=== PATIENT | male | born 1960 | race Caucasian/White ===

== ENCOUNTER 2020-09-27 10:19 | Emergency (ER) | payer BC, SELFPAY ==
[2020-09-27 10:29] VITALS: BP 146/91; PULSE 81; RESP 18; TEMP 36.9; O2SAT 100; BMI 25.9
--- NOTE | 2020-09-27 10:52 | HMH.EDUTC ---
[facility] [place] Disposition Clinical Impression: Hives Disposition: Home, Self-Care Condition on Discharge: Good Instructions: DI for Hives Additional Instructions: Follow up with Dr Mcarthur if recurs/does not resolve Prescriptions: methylPREDNISolone [Medrol 4mg tab] 4 mg PO DIRECTED #21 tab Transmission Status: Pending to [facility] Cetirizine HCl [Zyrtec 10mg Tab*] 10 mg PO DAILY 10 Days #10 tab Transmission Status: Pending to [facility] Referrals: Susan Mcarthur MD [Primary Care Provider] - Time of Disposition: 11:05 Medical Decision Making - Pete Inquiry Pt receiving controlled substance: No Vital Signs: 09/27/20 10:29 Temperature 98.4 F Temperature Source Oral Pulse Rate [Radial] 81 Respiratory Rate 18 Blood Pressure [Right Arm] 146/91 H Blood Pressure Mean [Right Arm] 109 Blood Pressure Source [Right Arm] Automatic Cuff Blood Pressure Position [Right Arm] Sitting 02 Sat by Pulse Oximetry 100 Oxygen Delivery Method Room Air [facility] [place] HPI - General Stated complaint: Rash on stomach Time Seen by Provider: 09/27/20 10:52 Mode of Arrival: Ambulatory Source of Information: Patient Limitations: No Limitations Description of Symptoms (Recalled from Triage Doc. by RN): rash all over x 3 days HEENT Symptoms (Recalled from RN notes): No Resp Symptoms (Recalled from RN notes): No Skin Symptoms (Recalled from RN notes): Yes MS Symptoms (Recalled from RN notes): No Functional Status (Recalled from RN notes): wnl - History of Present Illness Provider Complaint: Fluctuating rash all over body X several days. No known new exposures. Rash comes and goes. At times, rash is red and raised. Resolves, and then recurs in a new spot. It is itchy. No other symptoms. Denies ear pain, sore throat, fever, cough, loss of taste or smell, vomiting or diarrhea. Onset (ago): day(s) (3) Consistency: intermittent Relieving factors: none Exacerbating factors: none Associated symptoms: rash Treatments prior to arrival: none - Related Data Previous Rx's Medication Instructions Recorded Cetirizine HCl [Zyrtec 10mg Tab*] 10 mg PO DAILY 10 Days #10 tab 09/27/20 methylPREDNISolone [Medrol 4mg 4 mg PO DIRECTED #21 tab 09/27/20 tab] Allergies Allergy/AdvReac Type Severity Reaction Status Date / Time No Known Allergies Allergy Unverified 10/17/17 14:36 - Worker's Comp Is this a Worker's Comp case?: No [facility] History - Hepatitis A Screen Drug use history?: No High risk sexual behaviors?: No History of sexually transmitted infection?: No Currently employed?: No Childcare worker?: No Do you have indoor plumbing?: Yes Do you have electricity?: Yes Attestation statement:: This patient has been screened for Hepatitis A risk factors. I have reviewed the patient's past medical history: Yes - Social History Alcohol Intake: never Occupational Status: other ROS Obtained: Yes All systems reviewed & no additional complaints - Integumentary/Breasts Skin/Breast: Reports rash Physical Exam - General General appearance: alert, in no apparent distress - Head Head exam: atraumatic, normocephalic - Eye Eye exam: Present: PERRL - ENT ENT exam: Present: normal oropharynx - Respiratory Respiratory exam: Present: normal lung sounds bilaterally - Cardiovascular Cardiovascular exam: Present: regular rate, normal rhythm - Neurological Exam Neurological exam: Present: alert, oriented X3 - Skin Skin exam: Present: warm, dry, intact, rash (scattered wheals)
[2020-09-27 11:15] VITALS: BP 146/91; PULSE 81; RESP 18; TEMP 36.9; O2SAT 100
== END 2020-09-27 11:15 | disposition home or self-care (01) ==
PROVIDERS: Emergency Provider Physician Assistant; PCP Family Medicine
DX: L50.9 Urticaria, unspecified (principal)
CPT/HCPCS: 99201

== ENCOUNTER → 2020-12-23 14:24 | Outpatient (CLI) | payer BC, SELFPAY | PROVIDERS: PCP Family Medicine; Visit Provider Family Medicine | DX: Z20.822 Contact with and (suspected) exposure to COVID-19 (principal); U07.1 COVID-19; R09.89 Other specified symptoms and signs involving the circulatory and respiratory systems | CPT/HCPCS: U0003 ==

== ENCOUNTER 2020-12-24 14:00 | Outpatient (CLI) | payer BC, SELFPAY ==
[2020-12-24] VITALS (8 sets, daily range): BP systolic 171–186; BP diastolic 103–110; PULSE 69–77; RESP 16–22; TEMP 36.6; O2SAT 93–98
== END 2020-12-24 18:11 | disposition home or self-care (01) ==
LOC: INF 14:03
PROVIDERS: PCP Family Medicine; Visit Provider Family Medicine
DX: U07.1 COVID-19 (principal)
CPT/HCPCS: 96365

== ENCOUNTER 2021-10-01 09:50 | Emergency (ER) | payer BC, SELFPAY ==
[2021-10-01 11:42] VITALS: BP 139/90; PULSE 86; RESP 20; TEMP 37.2; O2SAT 97; BMI 25.1
[2021-10-01 11:53] LABS: UTC Strep Screen (Rapid) Positive (Negative)
[2021-10-01 12:29] VITALS: BP 139/90; PULSE 86; RESP 20; TEMP 37.2
--- NOTE | 2021-10-01 12:55 | HMH.EDUTC ---
[facility] [place] Disposition Clinical Impression: Strep throat Disposition: Home, Self-Care Condition on Discharge: Good Instructions: Strep Throat, DI for Strep Throat Additional Instructions: Drink plenty of fluids. Take tylenol or ibuprofen for pain or fever. Take the medications as directed. Follow up with your regular doctor. GO TO THE ER FOR ANY WORSENING SYMPTOMS Throw your tooth brush away and get a new one. The cough syrup (promethazine dm) will make you drowsy, so don't drive or operate heavy machinery after taking it. The tessalon perles (benzonatate) should not make you drowsy. Prescriptions: Promethazine/Dextromethorphan [Promethazine-Dm Syrup] 5 ml PO Q6HP PRN #240 ml PRN Reason: Cough [facility] Amoxicillin/Potassium Clav [Augmentin 875-125 Tablet] 1 tab PO Q12H 10 Days #20 tab Transmission Status: Received by [facility] Benzonatate [Benzonatate 100mg cap] 100 mg PO TIDP PRN #30 cap PRN Reason: Cough Transmission Status: [facility] predniSONE [Deltasone 10mg tablet] 10 mg PO BID 5 Days #10 tab Transmission Status: [facility] Referrals: Micah Ramsey MD [Primary Care Provider] - Time of Disposition: 13:00 Medical Decision Making - Medical Records Medical records reviewed: No: I reviewed the patient's medical records. - Pete Inquiry Pt receiving controlled substance: No Vital Signs: 10/01/21 11:42 10/01/21 12:29 Temperature 99 F 99 F Temperature Source Oral Pulse Rate 86 Pulse Rate [Left] 86 Respiratory Rate 20 20 Blood Pressure 139/90 Blood Pressure [Right Arm] 139/90 Blood Pressure Mean [Right Arm] 106 02 Sat by Pulse Oximetry 97 - Lab Data Lab results reviewed: Yes: I reviewed the patient's lab results. Lab Results 10/01/21 11:52: Strep Scn Rapid Clinic Positive A [facility] [place] HPI - General Stated complaint: sore throat, cough Time Seen by Provider: 10/01/21 12:55 Mode of Arrival: Ambulatory Source of Information: Patient Limitations: No Limitations Description of Symptoms (Recalled from Triage Doc. by RN): pt c/o a cough and sore throat x2 days. HEENT Symptoms (Recalled from RN notes): Yes (sore throat) Resp Symptoms (Recalled from RN notes): No (cough) Skin Symptoms (Recalled from RN notes): No MS Symptoms (Recalled from RN notes): No Functional Status (Recalled from RN notes): wnl - History of Present Illness Provider Complaint: He states that he has had a sore throat for the past 3 days. For the past 2 days, he has had a pretty bad cough . He is coughing up greenish sputum. He has not had a documented fever, but he has had some chilling. - Related Data Previous Rx's Medication Instructions Recorded Cetirizine HCl [Zyrtec 10mg Tab*] 10 mg PO DAILY 10 Days #10 tab 09/27/20 methylPREDNISolone [Medrol 4mg 4 mg PO DIRECTED #21 tab 09/27/20 tab] Amoxicillin/Potassium Clav 1 tab PO Q12H 10 Days #20 tab 10/01/21 [Augmentin 875-125 Tablet] Benzonatate [Benzonatate 100mg 100 mg PO TIDP PRN #30 cap 10/01/21 cap] Promethazine/Dextromethorphan 5 ml PO Q6HP PRN #240 ml 10/01/21 [Promethazine-Dm Syrup] predniSONE [Deltasone 10mg tablet] 10 mg PO BID 5 Days #10 tab 10/01/21 Allergies Allergy/AdvReac Type Severity Reaction Status Date / Time No Known Allergies Allergy Unverified 10/17/17 14:36 - Worker's Comp Is this a Worker's Comp case?: No [facility] History - Hepatitis A Screen Drug use history?: No High risk sexual behaviors?: No History of sexually transmitted infection?: No Currently employed?: No Childcare worker?: No Do you have indoor plumbing?: Yes Do you have electricity?: Yes Attestation statement:: This patient has been screened for Hepatitis A risk factors. I have reviewed the patient's past medical history: Yes - Social History Alcohol Intake: never Occupational Status: other ROS Obtained: Yes
== END 2021-10-01 13:07 | disposition home or self-care (01) ==
PROVIDERS: Emergency Provider Nurse Practitioner Family; PCP Family Medicine
DX: J02.0 Streptococcal pharyngitis (principal)
CPT/HCPCS: 87880; 99202; G0463

== ENCOUNTER 2022-01-08 13:00 | Emergency (ER) | payer BC, SELFPAY ==
[2022-01-08 13:01] VITALS: BP 149/90; PULSE 98; RESP 16; TEMP 36.7; O2SAT 97; BMI 25.8
--- NOTE | 2022-01-08 13:24 | HMH.EDUTC ---
[facility] [place] Disposition Clinical Impression: Sinusitis Qualifiers: Sinusitis location: unspecified location Chronicity: unspecified Qualified Code(s): J32.9 - Chronic sinusitis, unspecified Disposition: Home, Self-Care Condition on Discharge: Good Instructions: Sinusitis, DI for Sinusitis Additional Instructions: *Monitor Temp, Over the counter Motrin or Tylenol as directed/as needed Tylenol every 4 hours and Motrin every 6 hours (as long as your family doctor has told you that you can take it) for fever or pain. and straight to ER if unable to lower temp less than 101.0 after medication given *Warm salt water gargles may help to soothe the throat *Throat Lozenges *Warm fluids like tea with honey may help to soothe the throat *Sleep elevated *Humidifier/Vaporizer Take medication as prescribed Return if needed Follow up IMMEDIATELY for new or worsening symptoms or no Noticeable improvement over the next 48-72 hours. 911 for difficulty breathing or swallowing Prescriptions: Amoxicillin/Potassium Clav [Amox-Clav 875-125 mg Tablet] 1 tab PO BID #20 tab [email or web address] predniSONE [Deltasone 10mg tablet] 10 mg PO BID 5 Days #10 tab Transmission Status: [email or web address] Promethazine/Dextromethorphan [Promethazine-Dm Syrup] 2.5 - 5 ml PO Q6H PRN #200 ml PRN Reason: Cough Transmission Status: [facility] Referrals: Mciah Ramsey MD [Primary Care Provider] - As needed Time of Disposition: 13:31 Medical Decision Making - Pete Inquiry Pt receiving controlled substance: No Pete was queried for this patient: No Vital Signs: 01/08/22 13:01 Temperature 98.1 F Temperature Source Oral Pulse Rate [Right] 98 H Respiratory Rate 16 Blood Pressure [Right Arm] 149/90 H Blood Pressure Mean [Right Arm] 109 Blood Pressure Source [Right Arm] Automatic Cuff Blood Pressure Position [Right Arm] Sitting 02 Sat by Pulse Oximetry 97 Oxygen Delivery Method Room Air [facility] [place] HPI - General Stated complaint: cough, sinus congestion Time Seen by Provider: 01/08/22 13:25 Mode of Arrival: Ambulatory Source of Information: Patient Limitations: No Limitations Description of Symptoms (Recalled from Triage Doc. by RN): sinus pressure, dry cough, body aches that started 2 days ago HEENT Symptoms (Recalled from RN notes): Yes (sinus pressure, dry cough, body ahces) Resp Symptoms (Recalled from RN notes): No Skin Symptoms (Recalled from RN notes): No MS Symptoms (Recalled from RN notes): No Functional Status (Recalled from RN notes): na - History of Present Illness Provider Complaint: Patient states that he has been having problems with his sinuses and has been taking OTC medications States that for the last couple of days it has got worse States that he has been having pressure behind his eyes, dry hacking cough and drainage in the back of his throat States that he thinks he may have a sinus infection - Related Data Previous Rx's Medication Instructions Recorded Cetirizine HCl [Zyrtec 10mg Tab*] 10 mg PO DAILY 10 Days #10 tab 09/27/20 methylPREDNISolone [Medrol 4mg 4 mg PO DIRECTED #21 tab 09/27/20 tab] Amoxicillin/Potassium Clav 1 tab PO Q12H 10 Days #20 tab 10/01/21 [Augmentin 875-125 Tablet] Benzonatate [Benzonatate 100mg 100 mg PO TIDP PRN #30 cap 10/01/21 cap] Promethazine/Dextromethorphan 5 ml PO Q6HP PRN #240 ml 10/01/21 [Promethazine-Dm Syrup] predniSONE [Deltasone 10mg tablet] 10 mg PO BID 5 Days #10 tab 10/01/21 Amoxicillin/Potassium Clav 1 tab PO BID #20 tab 01/08/22 [Amox-Clav 875-125 mg Tablet] Promethazine/Dextromethorphan 2.5 - 5 ml PO Q6H PRN #200 ml 01/08/22 [Promethazine-Dm Syrup] predniSONE [Deltasone 10mg tablet] 10 mg PO BID 5 Days #10 tab 01/08/22 Allergies Allergy/AdvReac Type Severity Reaction Status Date / Time No Known Allergies Allergy Verified 01/08/22 13:24 - Worker's Comp Is this a Wor
[2022-01-08 13:33] VITALS: BP 149/90; PULSE 98; RESP 16; TEMP 36.7; O2SAT 97
== END 2022-01-08 13:35 | disposition home or self-care (01) ==
PROVIDERS: Emergency Provider Nurse Practitioner; PCP Family Medicine
DX: J32.9 Chronic sinusitis, unspecified (principal); Z79.52 Long term (current) use of systemic steroids; Z79.899 Other long term (current) drug therapy
CPT/HCPCS: 99213; G0463

== ENCOUNTER 2022-12-05 23:10 | Emergency (ER) | payer BC, SELFPAY ==
[2022-12-05 23:21] VITALS: BP 146/77; PULSE 59; RESP 17; TEMP 36.6; O2SAT 97; BMI 25.1
--- NOTE | 2022-12-05 23:37 | CT_ITS ---
PROCEDURE INFORMATION: Exam: CT Abdomen And Pelvis Without Contrast Exam date and time: 12/05/2022 11:54 PM Age: 62 years old Clinical indication: Abdominal pain; Localized; Right lower quadrant (rlq); Patient HX: Patient states rlq pain that started tonight. ; Additional info: Flank pain TECHNIQUE: Imaging protocol: Computed tomography of the abdomen and pelvis without contrast. Radiation optimization: All CT scans at this facility use at least one of these dose optimization techniques: automated exposure control; mA and/or kV adjustment per patient size (includes targeted exams where dose is matched to clinical indication); or iterative reconstruction. Other protocol: This patient has received 0 known CTs and 0 known cardiac nuclear medicine studies in the 12 months prior to the current study. COMPARISON: No relevant prior studies available. FINDINGS: Lungs: There is bibasilar atelectasis. Liver: Normal. No mass. Gallbladder and bile ducts: The gallbladder is contracted. There is no biliary ductal dilation. Pancreas: Normal. No ductal dilation. Spleen: Normal. No splenomegaly. Adrenal glands: Normal. No mass. Kidneys and ureters: There is a 3 x 4 mm right UPJ calculus causing mild hydronephrosis. The left kidney and ureter normal. Stomach and bowel: Unremarkable. No obstruction. No mucosal thickening. Appendix: The appendix is absent. Intraperitoneal space: Unremarkable. No free air. No significant fluid collection. Vasculature: Unremarkable. No abdominal aortic aneurysm. Lymph nodes: Unremarkable. No enlarged lymph nodes. Urinary bladder: Unremarkable as visualized. Reproductive: The prostate gland is enlarged. Bones/joints: Unremarkable. No acute fracture. Soft tissues: Unremarkable. IMPRESSION: 1. 3 x 4 mm right UPJ calculus causing mild hydronephrosis. 2. Other findings as detailed.
--- NOTE | 2022-12-05 23:50 | PC.NURSE ---
Pt gone to RAD via wheelchair
[2022-12-05 23:55] LABS: Basophils # 0.2 K/mm3 (0-0.2); Basophils % 1.6 % (0.1-2.0); Eosinophils # 0.3 K/mm3 (0.0-0.4); Eosinophils % 2.4 % (0.1-12.0); Hematocrit 51.2 % (42.0-52.0); Hemoglobin 16.8 g/dL (14.1-18.0); Lymphocytes # 5.2 K/mm3 (0.7-4.5); Lymphocytes % 44.1 % (10-50); Mean Corpuscular HGB Conc 32.8 g/dL (31.8-35.4); Mean Corpuscular Hemoglobin 31.2 pg (27.0-31.2); Mean Corpuscular Volume 95.2 fl (80-94); Mean Platelet Volume 7.6 fl (7.4-10.4); Monocytes # 0.8 K/mm3 (0.1-1.0); Monocytes % 6.8 % (1.7-9.3); Neutrophils # 5.4 K/mm3 (1.8-7.8); Neutrophils % 45.2 % (37.0-80.0); Platelet Count 299 K/mm3 (142-424); Red Blood Count 5.37 M/mm3 (4.60-6.20); White Blood Count 11.9 K/mm3 (4.8-10.8)
--- NOTE | 2022-12-05 23:56 | HMH.EDABDPAI ---
Discharge Plan Disposition Patient Disposition: Home, Self-Care Prescriptions Prescriptions: New ondansetron HCl 4 mg Tablet 4 mg PO Q8H PRN (Reason: Nausea) Qty: 20 0RF No Action cetirizine 10 MG tablet 10 mg PO DAILY 10 Days Qty: 10 0RF methylprednisolone 4 MG tablet 4 mg PO DIRECTED Qty: 21 0RF Rx Instructions: Take as directed on package instructions promethazine-DM 120 ML syrup 5 ml PO Q6HP PRN (Reason: Cough) Qty: 240 0RF prednisone 10 MG tablet 10 mg PO BID 5 Days Qty: 10 0RF benzonatate 100 MG capsule 100 mg PO TIDP PRN (Reason: Cough) Qty: 30 0RF amoxicillin-pot clavulanate 1 EACH tablet 1 tab PO Q12H 10 Days Qty: 20 0RF promethazine-DM 120 ML syrup 2.5 - 5 ml PO Q6H PRN (Reason: Cough) Qty: 200 0RF prednisone 10 MG tablet 10 mg PO BID 5 Days Qty: 10 0RF amoxicillin-pot clavulanate 1 EACH tablet 1 tab PO BID Qty: 20 0RF Referrals Follow up/Referrals: Susan Mcarthur MD [Primary Care Provider] - See instructions Clinical Impressions Clinical Impression: Renal colic on right side Instructions Patient Instructions: DI for Kidney Stones Discharge ED Provider: Eliceo MARINELLI)[place] Abdominal Pain HPI General Chief Complaint: Abdominal Pain Stated Complaint: Right side pain Time Seen by Provider: 12/05/22 23:56 Mode of Arrival: Ambulatory Source of Information: Patient, Spouse and Medical Record Limitations: No Limitations Description of Symptoms (Recalled from ER Triage Doc. by RN): pt to ED with nausea, vomiting and right flank pain x 1 hour. pt describes his pain as a stabbing sensation and rates it a 7 at this time History of Present Illness HPI narrative: acute rt flank pain with vomiting tonight w/o fever/rash or trauma complaint: flank pain Onset (ago): hour(s) Consistency: intermittent Location: R flank Severity: moderate Associated symptoms: nausea and vomiting Related Data Previous Rx's Medication Instructions Recorded cetirizine 10 mg tablet 10 mg PO DAILY 10 days #10 tabs 09/27/20 methylprednisolone 4 mg tablet 4 mg PO DIRECTED #21 tabs 09/27/20 amoxicillin 875 mg-potassium 1 tab PO Q12H 10 days #20 tabs 10/01/21 clavulanate 125 mg tablet benzonatate 100 mg capsule 100 mg PO TIDP PRN Cough #30 caps 10/01/21 prednisone 10 mg tablet 10 mg PO BID 5 days #10 tabs 10/01/21 promethazine-DM 6.25 mg-15 mg/5 mL 5 ml PO Q6HP PRN Cough #240 mL 10/01/21 oral syrup amoxicillin 875 mg-potassium 1 tab PO BID #20 tabs 01/08/22 clavulanate 125 mg tablet prednisone 10 mg tablet 10 mg PO BID 5 days #10 tabs 01/08/22 promethazine-DM 6.25 mg-15 mg/5 mL 2.5 - 5 ml PO Q6H PRN Cough #200 mL 01/08/22 oral syrup ondansetron HCl 4 mg tablet 4 mg PO Q8H PRN Nausea #20 tabs 12/06/22 Allergies Allergy/AdvReac Type Severity Reaction Status Date / Time No Known Allergies Allergy Verified 01/08/22 13:24 [facility] Disclaimer: The information contained in this section may have been updated after the patient was seen, as this information can be updated by other users. Social History Smoking Status: Never smoker alcohol intake: never current occupational status: other Travel in the last 8 weeks: None ROS Obtained: Yes All systems reviewed & no additional complaints except as documented Physical Exam General General appearance: alert Head Head exam: normocephalic Eye Eye exam: Present PERRL and EOMI; Absent scleral icterus ENT ENT exam: Present mucous membranes moist Neck Neck exam: Present trachea midline Respiratory Respiratory exam: Absent respiratory distress Cardiovascular Cardiovascular exam: Present regular rate Abdominal Exam Abdominal exam: Present soft; Absent tenderness Extremities Exam Extremities exam: Present full ROM Neurological Exam Neurological exam: Present alert, oriented X3 and CN II-XII intact; Absent motor sensory deficit Psychiatric Psychiatric exam: Present normal affect Skin Sk
[2022-12-06] LABS: Alanine Aminotransferase 28 U/L (12-78); Albumin Level 4.3 g/dl (3.5-5.0); Albumin/Globulin Ratio 1.6 (1.1-1.8); Alkaline Phosphatase 63 U/L (38-126); Anion Gap 7.5 mEq/L (5-15); Aspartate Amino Transferase 30 U/L (17-59); Bilirubin,Total 0.5 mg/dl (0.2-1.3); Blood Urea Nitrogen 20 mg/dl (9-20); Calcium 8.2 mg/dl (8.4-10.2); Carbon Dioxide 30 mmol/L (22.0-30.0); Chloride 106 mmol/L (98-107); Creatinine Clearance Estimated 70 mL/min (50-200); Estimated Glomerular Filt Rate 61 ml/min (>60); GFR (African American) 74 ML/MIN (>60); Globulin 2.7 g/dL (1.3-3.2); Glucose 112 mg/dl (74-100); Potassium 3.5 mmoL/L (3.5-5.1); Sodium 140 mmol/L (136-145)
--- NOTE | 2022-12-06 | PC.NURSE ---
Pt back from RAD
[2022-12-06 00:05] LABS: C-Reactive Protein 1.5 mg/L (0-4)
[2022-12-06 00:19] LABS: Procalcitonin 0.068 ng/mL (0.0-2.0)
[2022-12-06 00:25] LABS: Erythrocyte Sedimentation Rate 1 mm/hr (0-20)
--- NOTE | 2022-12-06 00:36 | PC.NURSE ---
called radiology to prepare a disc for pt
[2022-12-06 00:42] VITALS: BP 132/68; PULSE 75; RESP 18; TEMP 36.8; O2SAT 97
== END 2022-12-06 00:59 | disposition home or self-care (01) ==
PROVIDERS: Emergency Provider Emergency Medicine; PCP Family Medicine
DX: N23 Unspecified renal colic (principal)
CPT/HCPCS: 74176; 80053; 84145; 85025; 85651; 86140; 96361; 96374; 96375; 99285; J0131; J2405

== ENCOUNTER 2023-10-07 12:36 | Emergency (ER) | payer MEDICARE, BC, SELFPAY ==
[2023-10-07 12:45] VITALS: BP 140/85; PULSE 88; RESP 19; TEMP 36.9; O2SAT 98; BMI 30.9
[2023-10-07 13:00] LABS: UTC Influenza A Antigen Positive (Negative); UTC Influenza B Antigen Negative (Negative)
--- NOTE | 2023-10-07 13:15 | EXP.UTC ---
Discharge Plan Disposition Patient Disposition: Home, Self-Care Condition: Good Prescriptions Prescriptions: New benzonatate 200 mg capsule 200 mg PO TID Qty: 30 0RF Referrals Follow up/Referrals: Susan Mcarthur MD [Primary Care Provider] - See instructions Clinical Impressions Clinical Impression: Influenza A Instructions Patient Instructions: DI for Influenza -- Adult Discharge ED Provider: Sindhu Zepeda [facility] [place] General Stated complaint: h/a, body aches Mode of Arrival: Ambulatory Source of Information: Patient Limitations: No Limitations Time Seen by Provider: 10/07/23 13:14 Description of Symptoms (Recalled from Triage Doc. by RN): PATIENT C/O PRODUCTIVE COUGH, HEADACHE AND BODY ACHES X 3 DAYS HEENT Symptoms (Recalled from RN notes): Yes Resp Symptoms (Recalled from RN notes): Yes Skin Symptoms (Recalled from RN notes): No MS Symptoms (Recalled from RN notes): No Functional Status (Recalled from RN notes): WNL Related Data Previous Rx's Medication Instructions Recorded benzonatate 200 mg capsule 200 mg PO TID #30 caps 10/07/23 Allergies Allergy/AdvReac Type Severity Reaction Status Date / Time No Known Allergies Allergy Verified 01/08/22 13:24 Worker's Comp Is this a Worker's Comp case?: No [facility] Disclaimer: The information contained in this section may have been updated after the patient was seen, as this information can be updated by other users. Medical History (Updated 10/07/23 @ 13:26 by Sindhu Zepeda APRN) No significant past medical history Social History Smoking Status: Never smoker alcohol intake: never current occupational status: other Travel in the last 8 weeks: None ROS Obtained: Yes All systems reviewed & no additional complaints except as documented Constitutional Constitutional: Reports body ache, Reports chills, Reports fatigue, Reports fever(s), Reports headache(s) and Reports malaise Eyes Eyes: Reports system reviewed and no additional complaints, except as documented ENT Ears, Nose, Mouth, and Throat: Reports system reviewed and no additional complaints, except as documented, Reports headache(s), Reports nasal congestion, Reports nasal discharge and Reports sore throat Cardiovascular Cardiovascular: Reports system reviewed and no additional complaints, except as documented Respiratory Respiratory: Reports system reviewed and no additional complaints, except as documented and Reports non-productive cough Gastrointestinal Gastrointestingal: Reports system reviewed and no additional complaints, except as documented Genitourinary Male Genitourinary: Reports system reviewed and no additional complaints, except as documented Musculoskeletal Musculoskeletal: Reports system reviewed and no additional complaints, except as documented Integumentary/Breasts Skin/Breast: Reports system reviewed and no additional complaints, except as documented Neurologic Neurologic: Reports system reviewed and no additional complaints, except as documented and Reports headache(s) Endocrine Endocrine: Reports system reviewed and no additional complaints, except as documented and Reports fatigue Hematologic/Lymphatic Henatologic/Lymphatic: Reports system reviewed and no additional complaints, except as documented Allergic/Immunologic Allergic/Immunologic: Reports system reviewed and no additional complaints, except as documented Physical Exam General General appearance: alert Comment: ill appearing Head Head exam: atraumatic and normocephalic Eye Eye exam: Present normal appearance Expanded ENT Exam External ear exam: Present normal external inspection Nasal speculum exam: Bilateral: other (clear drainage) Mouth exam: Present normal external inspection Teeth exam: Present normal inspection Comment: PND Neck Neck exam: Present normal inspection Chest Chest inspection: Present normal inspection and symmetric chest wall rise Respiratory Respiratory exam: Pre
[2023-10-07 13:27] VITALS: BP 140/85; PULSE 88; RESP 19; TEMP 36.9; O2SAT 98
== END 2023-10-07 13:30 | disposition home or self-care (01) ==
PROVIDERS: Emergency Provider Nurse Practitioner Family; PCP Family Medicine
DX: J10.1 Influenza due to other identified influenza virus with other respiratory manifestations (principal); R51.9 Headache, unspecified; R05.9 Cough, unspecified; R50.9 Fever, unspecified; R09.81 Nasal congestion; R07.0 Pain in throat; R53.81 Other malaise; M79.18 Myalgia, other site
CPT/HCPCS: 87804; 99212; 99214; G0463

== ENCOUNTER 2024-02-27 13:44 | Outpatient (CLI) | payer MEDICARE, BC, SELFPAY ==
--- NOTE | 2024-02-27 13:57 | ECG_ITS ---
APPROVED REPORT Exam: Resting ECG HR:78 bpm ECG Measurements Heart Rate 78 AXES CO 153 P 60 QRSd 90 QRS 115 QT 360 T 30 QTc 393 Conclusion SINUS RHYTHM POSSIBLE RIGHT VENTRICULAR HYPERTROPHY [SOME/ALL OF: PROMINENT R IN V1, LATE TRANSITION, RAD, ADRIA, SSS] ABNORMAL ECG UNCONFIRMED REPORT Electronically signed by : Micah Brantley MD 02/27/2024 20:37:39
== END 2024-02-27 23:59 | disposition home or self-care (01) ==
LOC: RT 13:45
PROVIDERS: PCP Nurse Practitioner Family; Visit Provider Colon & Rectal Surgery
DX: K64.9 Unspecified hemorrhoids (principal)
CPT/HCPCS: 93005

== ENCOUNTER 2024-08-16 09:22 | Outpatient (CLI) | payer MEDICARE, BC, SELFPAY ==
[2024-08-16 10:01] LABS: Basophils # 0.1 K/mm3 (0-0.2); Basophils % 1.2 % (0.1-2.0); Eosinophils # 0.2 K/mm3 (0.0-0.4); Eosinophils % 2.9 % (0.1-12.0); Hematocrit 50.5 % (42.0-52.0); Lymphocytes # 2.3 K/mm3 (0.7-4.5); Lymphocytes % 33.1 % (10-50); Mean Corpuscular HGB Conc 33.7 g/dL (31.8-35.4); Mean Corpuscular Volume 94.9 fl (80-94); Mean Platelet Volume 7.1 fl (7.4-10.4); Monocytes # 0.5 K/mm3 (0.1-1.0); Monocytes % 7.5 % (1.7-9.3); Neutrophils # 3.8 K/mm3 (1.8-7.8); Neutrophils % 55.3 % (37.0-80.0); Platelet Count 181 K/mm3 (142-424); Red Blood Count 5.32 M/mm3 (4.60-6.20); Red Cell Distribution Width 13.4 % (11.5-17.5); White Blood Count 6.9 K/mm3 (4.8-10.8)
[2024-08-16 10:11] LABS: Hemoglobin A1C 5.1 % (4.0-6.0)
[2024-08-16 10:22] LABS: Albumin Level 4.1 g/dl (3.5-5.0); Chloride 108 mmol/L (98-107); Potassium 4.6 mmoL/L (3.5-5.1); Sodium 141 mmol/L (136-145)
[2024-08-16 10:25] LABS: Alanine Aminotransferase 28 U/L (12-78); Albumin/Globulin Ratio 1.6 (1.1-1.8); Alkaline Phosphatase 49 U/L (38-126); Anion Gap 8.6 mEq/L (5-15); Aspartate Amino Transferase 28 U/L (17-59); Bilirubin,Total 0.9 mg/dl (0.2-1.3); Blood Urea Nitrogen 13 mg/dl (9-20); Calcium 9.2 mg/dl (8.4-10.2); Carbon Dioxide 29 mmol/L (22.0-30.0); Cholesterol 220 mg/dl (140-200); Estimated Glomerular Filt Rate 75 ml/min (>60); GFR (African American) 90 ML/MIN (>60); Globulin 2.5 g/dL (1.3-3.2); Glucose 103 mg/dl (74-100); HDL Cholesterol 29 mg/dl (40-60); Total Protein,Serum 6.6 g/dl (6.3-8.2); Triglycerides 151 mg/dl (30-150); VLDL Cholesterol 30 mg/dL (0-40)
[2024-08-16 10:26] LABS: Chol/HDL Ratio 7.6 (1-3.5)
[2024-08-16 10:36] LABS: Direct LDL Cholesterol 145.59 mg/dL (100-129)
[2024-08-16 10:40] LABS: Free T4 (Free Thyroxine) 1.06 ng/dl (0.78-2.19)
[2024-08-16 10:58] LABS: Thyroid Stimulating Hormone 1.73 uIU/mL (0.465-4.68)
== END 2024-08-16 23:59 | disposition home or self-care (01) ==
LOC: LAB 09:24
PROVIDERS: PCP Internal Medicine; Visit Provider Internal Medicine
DX: Z00.00 Encounter for general adult medical examination without abnormal findings (principal); R53.83 Other fatigue; Z13.29 Encounter for screening for other suspected endocrine disorder; Z13.1 Encounter for screening for diabetes mellitus; I10 Essential (primary) hypertension; Z13.220 Encounter for screening for lipoid disorders
CPT/HCPCS: 36415; 80053; 80061; 83036; 84439; 84443; 85025

== ENCOUNTER 2024-08-29 14:34 | Outpatient (CLI) | payer MEDICARE, BC, SELFPAY ==
--- NOTE | 2024-08-29 14:38 | XR_ITS ---
PROCEDURE INFORMATION: Exam: XR Chest Exam date and time: 08/29/2024 2:52 PM Age: 64 years old Clinical indication: Cough; Additional info: Cough, chest pain TECHNIQUE: Imaging protocol: Radiologic exam of the chest. Views: 2 views. COMPARISON: CT ABDOMEN PELVIS WO CON 12/05/2022 11:54 PM FINDINGS: Lungs: No consolidation or lung nodules. Pleural spaces: No pleural effusion. No pneumothorax. Heart/Mediastinum: No abnormalities. No cardiomegaly. No pulmonary vascular congestion. Bones/joints: No fractures or bone lesions. IMPRESSION: No acute findings in the chest.
== END 2024-08-29 23:59 | disposition home or self-care (01) ==
LOC: RAD 14:36
PROVIDERS: PCP Internal Medicine; Visit Provider Internal Medicine
DX: R05.9 Cough, unspecified (principal); R07.9 Chest pain, unspecified; R53.83 Other fatigue
CPT/HCPCS: 71046

== ENCOUNTER 2024-09-06 10:05 | Outpatient (CLI) | payer MEDICARE, BC, SELFPAY | END 2024-09-06 23:59 | disposition home or self-care (01) | LOC: LAB.DROPOF 09-07 09:09 | PROVIDERS: PCP Internal Medicine; Visit Provider Student in an Organized Health Care Education/Training Program | DX: R05.9 Cough, unspecified (principal) | CPT/HCPCS: 87635 ==

== ENCOUNTER 2024-09-17 06:46 | Outpatient (CLI) | payer MEDICARE, BC, SELFPAY ==
--- NOTE | 2024-09-17 | CA_ITS ---
APPROVED REPORT Exam: Exercise Treadmill Technologist: Viktoriya Cisneros Ht: 5 ft 6 in Wt: 193 lbs BSA: 1.97 m2 HR: 74 bpm BP: 161/90 mmHg Stress Test Details Test: Exercise stress testing was performed using a Lee protocol. HR Resting HR: 74 bpm Max Heart Rate (APMHR): 154.819768 bpm Max HR Achieved: 137 bpm Target HR (85% APMHR): 130.997874 bpm % of APMHR: 88.96 Recovery HR: 89 bpm BP Resting BP: 161.0/90.0 mmHg Max BP: 190.0/92.0 mmHg Recovery BP: 151.0/82.0 mmHg ECG Resting ECG: Normal sinus rhythm Stress ECG Conclusion Symptoms: Dyspnea Arrhythmias/Ectopy: PVC ST-T Changes: Less than [address] depression Conclusion: Normal EKG response to exercise. Electronically signed by : Alicia Cobb MD 09/17/2024 12:26:39
--- NOTE | 2024-09-17 07:05 | CA_ITS ---
APPROVED REPORT EXAM: Comprehensive 2D, Doppler, and color-flow Echocardiogram Fish Hatchery Specialist: Christina Rocha CRT Ht: 5 ft 6 in Wt: 193lbs BSA: 1.97 BP: 148/79 mmHg Indications: Abnormal ECG, Chest Pain, Shortness of Breath 2D Dimensions LA Volume 19.10 mL LA Volume Index 9.50 mL/m2 (M/F) 16-34 M-Mode Dimensions RVDd 2.68 cm (0.9-2.6) LA Diam 3.14 cm (1.9-4.0) LVDd 3.79 cm (3.5-5.7) LVDs 2.22 cm (3.5-5.7) IVSd 1.61 cm (0.6-1.1) PWd 1.04 cm (0.6-1.1) EF (Teich) 73.10% FS 41.40% EDV (Teich) 61.60 mL TAPSE 1.69 (<1.7) ESV (Teich) 16.60 mL LV Diastology E Decel Time 173 (160-240 msec) E/A Ratio 0.66 MED A' 10.30 cm/s LAT A' 11.00 cm/s Aortic Valve AO Peak GR. 3.20 mmHg Mitral Valve MV E Max Mane. 59.0 (40-130 cm/s) MV A Velocity 88.0 (40-130 cm/s) E/A Ratio 0.66 MV PHT 51.0 ms Pulmonary Valve PV Peak Velocity 183.0 (50-150 cm/s) Tricuspid Valve TR P. Velocity 279.00 cm/s RAP Estimate 10.00 mmHg RVSP 41.10 mmHg Left Ventricle The left ventricle is normal size. The left ventricular systolic function is normal. The left ventricular ejection fraction is within the normal range. There is increased LV wall thickness. There is normal LV segmental wall motion. Transmitral Doppler flow pattern suggests impaired LV relaxation. LVEF is 55%. Right Ventricle Right ventricle is mildly dilated. The right ventricular systolic function is normal. Atria Left atrium is mildly dilated. The right atrium size is normal. There is no Doppler evidence of interatrial shunt. Aortic Valve The aortic valve is mildly thickened. There is no aortic valvular stenosis. Mild aortic regurgitation. Mitral Valve The mitral valve is normal in structure. No evidence of mitral valve stenosis. Trace mitral regurgitation. Tricuspid Valve Tricuspid valve is grossly normal in structure and function. Trace tricuspid regurgitation. There is insufficient TR jet to estimate RVSP. Pulmonic Valve The pulmonary valve is normal in structure. Mild pulmonic regurgitation. Great Vessels The aortic root is normal in size. The ascending aorta is normal in size. IVC is normal in size and collapses >50% with inspiration. Pericardium There is no pericardial effusion. Other Information Study Quality: Fair Conclusion Normal biventricular systolic function. Mild RV dilation. Mild LA dilation. Mild AI, mild MR, mild DC. Electronically signed by : Alicia Cobb MD 09/18/2024 10:17:38
--- NOTE | 2024-09-17 07:05 | NM_ITS ---
APPROVED REPORT Exam: Nuclear Stress Test Indication: Chest pain, Abnormal EKG, HTN, High cholesterol Patient Location: Outpatient Stress Tech: Viktoriya Cisneros [place] Tech:Lucy Garcia, ARRT, RT (R)(N) Ht: 5 ft 10 in Wt: 185 lbs HR: 74 bpm BP: 161/90 mmHg BSA: 2.02 m2 TID: 1.04 BMI: 26.5 History: Chest pain, Abnormal EKG, HTN, High cholesterol Procedure: Patient exercised on Lee protocol 4:40 minutes and sec, resting heart rate 74 bpm, resting blood pressure 161/90 mmHg, with exercise maximum heart rate achived was 137 bpm which is 88 % of the maximum predicted heart rate and blood pressure was 190/92 mmHg. Test was stopped due to SOB. Patient denied any complaint of chest pain. Patient has fair exercise capacity, achieved 7.1 METs of workload on treadmill, the blood pressure response to exercise was normal. Cardiac Stress and Resting SPECT Images: Cardiac Stress and Resting SPECT images were obtained using technetium 99m Myoview 31.6 mCi stress and 10.49 mCi at rest. Resting and stress imaging in supine and prone positions demonstrate no evidence of fixed or reversible perfusion defects. Gated imaging demonstrates normal global and regional LV systolic function. LVEF is calculated 59%. Conclusion: No evidence of fixed or reversible perfusion defects. Gated imaging demonstrates normal global and regional LV systolic function. LVEF is calculated 59%. Electronically signed by : Alicia Cobb MD 09/17/2024 12:28:27
[2024-09-17] MEDS: SODIUM CHLORIDE 0.9% 10ML SYR (RAD ONLY) 10 ML IV ×2 (09:02→09:03)
[2024-09-17] MEDS: ISOTOPE MYOVIEW (PER STUDY) 1 DOSE IV (09:02)
== END 2024-09-17 23:59 | disposition home or self-care (01) ==
LOC: RAD 06:47
PROVIDERS: PCP Internal Medicine; Visit Provider Physician Assistant
DX: R94.31 Abnormal electrocardiogram [ECG] [EKG] (principal); R07.9 Chest pain, unspecified; R53.83 Other fatigue
CPT/HCPCS: 78452; 93017; 93018; 93306; A9502

== ENCOUNTER 2024-09-30 07:36 | Outpatient (CLI) | payer MEDICARE, BC, SELFPAY ==
[2024-09-30] VITALS (7 sets, daily range): BP systolic 109–153; BP diastolic 61–86; PULSE 55–70; RESP 15–18; TEMP 36.6; O2SAT 95–100; BMI 31.6
--- NOTE | 2024-09-30 07:38 | CT_ITS ---
APPROVED REPORT Primary Counselor: CLINICAL INDICATION Chest Pain TECHNIQUE Image Acquisition: A 128 slice MDCT scanner ([employer]ystem[employer] View) was used for data acquisition. A noncontrast coronary calcium scan was performed. A CT attenuation threshold of 130 Hounsfield units (HU) was used for the detection of calcium in contiguous voxels of 1 sq mm in area to be counted as individual lesions. Bolus tracking in the ascending aorta with a threshold of 180 HU was performed. Immediately afterwards, ECG synchronized cardiac CT was then performed from the cardiac base to apex using retrospective gating with ECG tube current modulation. A total of 85 mL of Isovue 370 mg/mL contrast medium was administered at 5 mL/sec followed by a saline flush using a biphasic injection protocol. A tube voltage of 120 KVp was used. The patient received the following medications prior to the cardiac CT. 50 mg of oral metoprolol 15 mg of oral ivabradine 0.8 mg of sublingual nitroglycerin The average heart rate at the time of acquisition was 60 bpm and regular. Image Reconstruction Transaxial images were reconstructed at 0.67 mm slide thickness. Data was reviewed interactively on an advanced workstation capable of 2 and 3-dimensional displays in all conventional reconstruction formats, including multiplanar reformations, maximum intensity projections, curved multiplanar reformations, and volume rendered reconstructions. When applicable, selected routine images describing the relevant coronary anatomy and pathology were saved and sent to PACS. Complications None Technical Quality Overall image quality was good. Coronary artery opacification was adequate. Total DLP (Dose-Length Product) is 2202.3 mGy-cm. The reported value represents the total of one or more individual components during the CT acquisition of this date and at this time, and as such, the same value may appear in more than one CT report depending on the interpreting/reporting physicians. COMPARISON None FINDINGS CT Coronary Calcium Scoring LMA (Left Main Artery) = 3 LAD (Left Anterior Descending) = 0 LCX (Left Coronary Circumflex) = 0 RCA (Right Coronary Artery) = 0 Total Calcium Score = 3 using the AJ-130 method. The observed calcium score of 3 is at 22nd percentile for subjects of the same age, sex, and race/ethnicity. The interpretation of the calcium heart score is based on the following continuum*: 0 = no calcified plaque detected (risk of coronary artery disease is very low ??? less than 5%) 1-10 = calcium detected in extremely minimal levels (risk of coronary diseases is still low ??? less than 10%) 11-100 = mild levels of plaque detected with certainty (mild or minimal narrowing of heart arteries is likely) 101-400 = definite,at least moderate levels of plaque detected (relatively high risk of a heart attack within 3-5 years) >401-999 = extensive levels of plaque detected (high risk of heart attack, high levels of vascular disease are present, high likelihood of at least one significant coronary narrowing) *The calcium heart score quantifies the burden of coronary calcification/plaque in the coronary arteries. The calcium heart score is not able to evaluate the presence or burden of non-calcified (i.e. soft) plaque. There is no identifiable calcification in the aortic valve, mitral annulus or mitral valve, pericardium, or myocardium. Coronary CT Angiography The coronary arterial system is right dominant. Quantitative Stenosis Grading: Left Main (LM): The left main originates normally from the left sinus of Valsalva. The LM bifurcates into the left anterior descending artery and left circumflex artery. There is 1 focus of calcified plaque in the distal LM, with no evidence of luminal stenosis. Left Anterior Descending (LAD) and Diagonal Branches: The LAD gives off 2 diagonal branch(es). The LAD and its branches are patent with no evidence of atherosclerosis. There is no evidence of LAD-myocardial bridge. Left Circumflex (LCX) and Obtuse Marginals (OM): The LCX gives off 1 Obtuse Marginal (OM) branch(es). The LCX and its branches are patent with no evidence of atherosclerosis. Right Coronary Artery (RCA): The RCA originates normally from the right sinus of Valsalva. The RCA gives off a posterior descending artery (PDA) and posterolateral (PL) branches. The RCA and its branches are patent with no evidence of atherosclerosis. Non-Coronary Cardiac Findings: Analysis of the left ventricular (LV) structure and function was performed after 3-D reconstruction of the LV from axial images, with user-corrected automatic contouring for assessment of LV volumes and user-defined reconstruction from oblique planes for measurement of 3-D cardiac structure and function. -The left ventricle systolic function is normal. -There is no left atrial appendage filling defect. Two right pulmonary veins and two left pulmonary veins drain normally into the left atrium. -No pericardial thickening or calcification. -Central and branch pulmonary arteries in the [id number] are unremarkable. -Thoracic aorta within the visualized thoracic aortic-branches in the [id number] is unremarkable. Extracardiac Structures No significant extra-cardiac findings. Note, however, that this study is focused on the cardiac findings. IMPRESSION -Presence of coronary calcification with an Agatston score = 3 using the AJ-130 method. -The observed calcium score of 3 is at 22nd percentile for subjects of the same age, sex, and race/ethnicity. -No evidence of significant flow-limiting atherosclerosis of the coronary arteries. -CAD-RADS 1. Management recommendations per ACC/AHA guidelines*, as clinically appropriate. *Recommendations: CAD RADS 0: Reassurance. Consider non-atherosclerotic causes of chest pain. CAD RADS 1: Consider non-atherosclerotic causes of chest pain. Consider preventive therapy and risk factor modification. CAD RADS 2: Consider non-atherosclerotic causes of chest pain. Consider preventive therapy and risk factor modification, particularly for patients with nonobstructive plaque in multiple segments. CAD RADS 3: Consider further functional testing. Consider symptom-guided anti-ischemic and preventive pharmacotherapy as well as risk factor modification per published guideline statements. CAD RADS 4A: Consider further functional testing or invasive coronary angiography with revascularization per published guideline statements. Consider symptom-guided anti-ischemic and preventive pharmacotherapy as well as risk factor modification per published guideline statements. CAD RADS 4B: Invasive coronary angiography recommended with revascularization per published guideline statements. Consider symptom-guided anti-ischemic and preventive pharmacotherapy as well as risk factor modification per published guideline statements. CAD RADS 5: Consider invasive angiography and/or viability assessment with revascularization per published guideline statements. Consider symptom-guided anti-ischemic and preventive pharmacotherapy as well as risk factor modification per published guideline statements. CRITICAL RESULT None COMMUNICATION The above findings were communicated to the patient at the time of his routine outpatient cardiology clinic visit prior to dictation of this report. The coronary and cardiac findings of this CCTA were reviewed, reported, and signed by Daljit Cobb MD (Veneer Jointer Operator) Conclusion Electronically signed by : Alicia Cobb MD 10/16/2024 00:55:53
[2024-09-30] MEDS: IVABRADINE HCL 7.5MG TABLET PO (07:59)
[2024-09-30] MEDS: METOPROLOL TARTRATE 50MG TABLET PO (08:00)
[2024-09-30 08:08] LABS: Chloride 107 mmol/L (98-107); Sodium 139 mmol/L (136-145)
[2024-09-30 08:09] LABS: Potassium 4.2 mmoL/L (3.5-5.1)
[2024-09-30 08:11] LABS: Blood Urea Nitrogen 15 mg/dl (9-20); Creatinine Clearance Estimated 83 mL/min (50-200); Estimated Glomerular Filt Rate 67 ml/min (>60); GFR (African American) 81 ML/MIN (>60)
[2024-09-30 08:12] LABS: Anion Gap 7.2 mEq/L (5-15); Calcium 8.6 mg/dl (8.4-10.2); Carbon Dioxide 29 mmol/L (22.0-30.0); Glucose 110 mg/dl (74-100)
[2024-09-30] MEDS: NITROGLYCERIN 0.4MG SL TABLET SL (08:55)
[2024-09-30] MEDS: SODIUM CHLORIDE 0.9% 10ML SYR (RAD ONLY) 10 ML IV (09:13)
[2024-09-30] MEDS: 0.9 % SODIUM CHLORIDE 50 ML VIAL IV (09:13)
[2024-09-30] MEDS: IOPAMIDOL-370 (76%);100ML BOTTLE 80 ML IV (09:13)
== END 2024-09-30 09:20 | disposition home or self-care (01) ==
LOC: RAD 07:38
PROVIDERS: PCP Internal Medicine; Visit Provider Internal Medicine
DX: R07.89 Other chest pain (principal); R53.83 Other fatigue
CPT/HCPCS: 75574; 80048; Q9967

== ENCOUNTER 2024-11-29 11:01 | Emergency (ER) | payer MEDICARE, BC, SELFPAY ==
[2024-11-29] VITALS (9 sets, daily range): BP systolic 132–152; BP diastolic 80–98; PULSE 77–98; RESP 13–24; TEMP 36.6; O2SAT 95–97; BMI 29.0
--- NOTE | 2024-11-29 11:08 | ECG_ITS ---
APPROVED REPORT Exam: Resting ECG HR:81 bpm ECG Measurements Heart Rate 81 AXES WV 168 P 70 QRSd 94 QRS 99 QT 375 T 56 QTc 412 Conclusion SINUS RHYTHM BORDERLINE RIGHT AXIS DEVIATION [QRS AXIS > 90] BORDERLINE ECG UNCONFIRMED REPORT Electronically signed by : BRAD MORENO, 11/30/2024 00:41:36
--- NOTE | 2024-11-29 11:09 | PC.NURSE ---
pt glucose was 128
--- NOTE | 2024-11-29 11:22 | PC.NURSE ---
pt walked well in [place] but did have complaints of dizziness and feeling lightheaded . made aware.
[2024-11-29] MEDS: RINGERS SOLUTION,LACTATED 500 ML 999 ML IV (11:28)
[2024-11-29] MEDS: MECLIZINE 25MG TABLET 25 MG PO (11:28)
[2024-11-29 11:29] LABS: Basophils % 0.4 % (0.1-2.0); Eosinophils # 0.1 K/mm3 (0.0-0.4); Eosinophils % 1.2 % (0.1-12.0); Hematocrit 47.2 % (42.0-52.0); Hemoglobin 16.1 g/dL (14.1-18.0); Lymphocytes # 1.7 K/mm3 (0.7-4.5); Lymphocytes % 18.7 % (10-50); Mean Corpuscular HGB Conc 34.1 g/dL (31.8-35.4); Mean Corpuscular Hemoglobin 31.8 pg (27.0-31.2); Mean Corpuscular Volume 93.3 fl (80-94); Mean Platelet Volume 9.1 fl (7.4-10.4); Monocytes # 0.6 K/mm3 (0.1-1.0); Monocytes % 6.8 % (1.7-9.3); Neutrophils # 6.6 K/mm3 (1.8-7.8); Neutrophils % 72.2 % (37.0-80.0); Platelet Count 195 K/mm3 (142-424); Red Blood Count 5.06 M/mm3 (4.60-6.20); Red Cell Distribution Width 12.6 % (11.5-17.5); White Blood Count 9.1 K/mm3 (4.8-10.8)
--- NOTE | 2024-11-29 11:35 | ED_ITS ---
Discharge Plan Disposition Patient Disposition: Home, Self-Care Condition: Good Prescriptions Prescriptions: No Action mecobalamin (vitamin B12) 2,500 mcg tablet,chewable 2,500 mcg PO DAILY multivitamin Tablet 1 tab PO DAILY losartan 50 mg tablet 50 mg PO DAILY Qty: 30 2RF amlodipine [Norvasc] 5 mg tablet 5 mg PO DAILY Qty: 30 2RF pantoprazole 40 mg tablet,delayed release (DR/EC) 40 mg PO DAILY Qty: 90 3RF Referrals Follow up/Referrals: Kolton Moore DO [Primary Care Provider] - See instructions Activity Restrictions/Add. Instructions Additional Instructions/Restrictions: Your evaluation was negative for emergent causes of your symptoms today. You may be at the beginning of a viral infection. Please stay hydrated and rest for the next few days as best as able. Please follow up with your primary care provider in 2-3 days. Please return to ED if your symptoms worsen, change in location, change in severity, new symptoms develop or if you become concerned for your health. Clinical Impressions Clinical Impression: Diplopia, Dizziness Instructions Patient Instructions: DI for Double Vision Print Language Print Language: Qatari Discharge ED Provider: Monique Laws General Adult HPI General Chief complaint: Nausea/Vomiting/Diarrhea Stated complaint: nausea Time Seen by Provider: 11/29/24 11:05 Mode of Arrival: Wheelchair Source of Information: Patient Limitations: No Limitations Description of Symptoms (Recalled from ER Triage Doc. by RN): pt presents from pcp office for further work up. dr moore sent pt. pt reports dizziness, low bp reading, and vomitting that began this am. pt denies soa, cp, abd pain. History of Present Illness HPI narrative: Patient is a 64-year-old male presenting with multiple complaints. Patient was at his PCP appointment this morning and reported dizziness and fatigue. PCP wanted the patient evaluated in the ER. 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 Today, patient woke up and had dizziness with double vision. He describes the dizziness as feeling unsteady. Patient states double vision resolves when he covers one eye. Patient denies loss of vision, headache, neck pain, trauma, numbness, weakness, paresthesias. Related Data Home Medications ?Medication ?Instructions ?Recorded ?Confirmed mecobalamin (vitamin B12) 2,500 2,500 mcg PO DAILY 02/20/24 11/29/24 mcg chewable tablet multivitamin 1 tab PO DAILY 02/20/24 11/29/24 Previous Rx's ?Medication ?Instructions ?Recorded amlodipine 5 mg tablet (Norvasc) 5 mg PO DAILY #30 tabs 10/15/24 losartan 50 mg tablet 50 mg PO DAILY #30 tabs 10/15/24 pantoprazole 40 mg tablet,delayed 40 mg PO DAILY #90 tabs 10/15/24 release Allergies Allergy/AdvReac Type Severity Reaction Status Date / Time No Known Allergies Allergy Verified 11/29/24 11:14 [facility] Disclaimer: The information contained in this section may have been updated after the patient was seen, as this information can be updated by other users. Medical History Abnormal electrocardiogram [ECG] [EKG] Cough in adult Fracture right wrist GERD (gastroesophageal reflux disease) Hemorrhoids Surgical History History of appendectomy Hx of colonoscopy Family History Mother Hypertension Father Hypertension Social History Smoking Status: Never smoker alcohol intake: never substance use type: denies use current occupational status: retired Travel in the last 8 weeks: None Have you lived/traveled outside [place] in past 30 days?: No Contact w/someone who lives/traveled outside US past 30 days?: No Exposure to someone with infectious disease in past 14 days?: No Do you have a fever (greater than 100.4 F or 38 C)?: No Have you tested positive for COVID-19: No Exposed to someone with COVID-19 in past 14 days?: No Do you have a sore throat?: No Do you have a cough?: No Do you have any weakness?: No Do you have any diarrhea?: No Are you experiencing any unusual bleeding?: No Do you have any muscle aches/pain?: No Do you have any abdominal pain?: No Are you experiencing loss of taste or smell?: No Other Medical History Have you received the Flu Vaccine for this season: No Have you received the Pneumonia Vaccine: No ROS Obtained: Yes All systems reviewed & no additional complaints except as documented Physical Exam General General appearance: alert and in no apparent distress Head Head exam: atraumatic, normocephalic and normal inspection Eye Eye exam: Present normal appearance, PERRL and EOMI ENT ENT exam: Present normal exam, normal oropharynx, mucous membranes moist and normal external ear exam Neck Neck exam: Present normal inspection, full ROM and trachea midline; Absent meningismus or lymphadenopathy Chest Chest inspection: Present normal inspection and symmetric chest wall rise; Absent tenderness Respiratory Respiratory exam: Present normal lung sounds bilaterally; Absent respiratory distress Cardiovascular Cardiovascular exam: Present regular rate and normal rhythm; Absent JVD Abdominal Exam Abdominal exam: Present soft; Absent distention, tenderness or guarding Extremities Exam Extremities exam: Present normal inspection, full ROM and normal capillary refill; Absent calf tenderness Back Exam Back exam: Present normal inspection; Absent tenderness Neurological Exam Neurological exam: Present alert, oriented X3, CN II-XII intact and normal gait; Absent motor sensory deficit Psychiatric Psychiatric exam: Present normal affect and normal mood Skin Skin exam: Present warm, dry, intact and normal color Lymphatic Lymphatic Findings: no adenopathy Medical Decision Making Medical Records Medical records reviewed: Yes I reviewed the patient's medical records. Screening: Per USPSTF and CDC recommendations, given the prevalence of disease in our region, it is our hospital?s policy to screen for HIV and viral Hepatitis for all patients aged 18 and over and those with ongoing risk factors. Pete Inquiry Pt receiving controlled substance: No Vital Signs: 11/29/24 11:02 11/29/24 11:31 11/29/24 12:00 Temperature 97.8 F Temperature Source Oral Pulse Rate 77 78 Pulse Rate [Left Radial] 87 Respiratory Rate 13 17 14 Blood Pressure 151/87 H 138/83 Blood Pressure [Right Arm] 152/98 H Blood Pressure Mean [Right Arm] 116 02 Sat by Pulse Oximetry 96 97 96 Oxygen Delivery Method Room Air Room Air Room Air 11/29/24 12:30 11/29/24 13:00 11/29/24 14:00 Temperature Temperature Source Pulse Rate 87 81 90 Pulse Rate [Left Radial] Respiratory Rate 17 15 19 Blood Pressure 140/85 136/80 132/85 Blood Pressure [Right Arm] Blood Pressure Mean [Right Arm] 02 Sat by Pulse Oximetry 96 96 96 Oxygen Delivery Method Room Air Room Air Room Air 11/29/24 14:30 11/29/24 15:00 11/29/24 15:25 Temperature 97.9 F Temperature Source Pulse Rate 88 94 H 98 H Pulse Rate [Left Radial] Respiratory Rate 15 24 17 Blood Pressure 140/91 H 141/90 H 141/90 H Blood Pressure [Right Arm] Blood Pressure Mean [Right Arm] 02 Sat by Pulse Oximetry 96 96 Oxygen Delivery Method Room Air Lab Data Lab results reviewed: Yes I reviewed the patient's lab results. Lab Results 11/29/24 11:10: WBC 9.1, RBC 5.06, Hgb 16.1, Hct 47.2, MCV 93.3, MCH 31.8 H, MCHC 34.1, RDW 12.6, Plt Count 195, MPV 9.1, Neut % (Auto) 72.2, Lymph % (Auto) 18.7, [place] % (Auto) 6.8, Eos % (Auto) 1.2, Baso % (Auto) 0.4, Neut # (Auto) 6.6, Lymph # (Auto) 1.7, [place] # (Auto) 0.6, Eos # (Auto) 0.1, Baso # (Auto) 0.0, Sodium 141, Potassium 4.0, Chloride 105, Carbon Dioxide 28, Anion Gap 12.0, BUN 15, Creatinine 0.90, Estimated Creat Clear 92, Estimated GFR 84, Est GFR ( Amer) 102, Glucose 139 H, Calcium 9.0, Troponin I < 0.01, HCV Ab STEPHANIE w/Rflx PCR Qn Negative, HIV Ag/Ab Combo Qual Negative 11/29/24 11:10 11/29/24 11:10 Orders (Tests/Meds): ED MEDICATIONS Discontinued Medications Generic Name Dose Route Start Last Admin Trade Name Freq PRN Reason Stop Dose Admin Lactated Ringer's 500 mls @ 999 mls/hr 11/29/24 11:22 11/29/24 11:28 Lactated Ringer's 500ml IV 11/29/24 11:52 999 mls/hr .Q31M ONE Administration Iopamidol 80 ml 11/29/24 13:32 11/29/24 13:33 Iopamidol-370 (76%);100ml Bottle IV 11/29/24 13:33 80 ml ONCE ONE Administration Meclizine HCl 25 mg 11/29/24 11:21 11/29/24 11:28 Meclizine 25mg Tablet PO 11/29/24 11:22 25 mg ONCE ONE Administration Sodium Chloride 50 ml 11/29/24 13:32 11/29/24 13:33 0.9 % Sodium Chloride 50 Ml Vial IV 11/29/24 13:33 50 ml ONCE ONE Administration Sodium Chloride 10 ml 11/29/24 13:32 11/29/24 13:33 Sodium Chloride 0.9% 10ml Syr (Rad Only) IV 12/29/24 13:31 10 ml NEEDED PRN Administration Maintain IV Site ORDERS Category Date Time Status CT angio head Stat Cat Scan 11/29/24 13:[address] head/brain wo con Stat Cat Scan 11/29/24 13:06 Completed BMP [Basic Metabolic Panel] Stat Lab 11/29/24 11:10 Completed CBC w/Auto Diff [Complete Blood Count Auto Diff] Stat Lab 11/29/24 11:10 Completed HIV Combo Stat Lab 11/29/24 11:10 Completed Hepatitis C Ab Qual. W/ RFX Stat Lab 11/29/24 11:10 Completed Troponin I Stat Lab 11/29/24 11:10 Completed ECG Data Tracing #1: Sinus rhythm with a rate of 81, no QTc prolongation, no significant ST elevation/depression or evidence of acute ischemia. ECG initial impression date: 11/29/24 ECG initial impression time: 11:10 Medical Decision Narrative: In summary, patient is a 64-year-old male presenting with dizziness. Patient follows with Dr. Moore and had presented for a follow-up appointment this morning. When he presented, patient was complaining of dizziness, nausea, fatigue and was found to have a lower than normal blood pressure for the patient. Based on these findings, Dr. Moore requested the patient be evaluated in the ED. He stated the patient was not complaining of chest pain at the time. On my evaluation, patient's primary complaint is dizziness, double vision, intermittent nausea, general fatigue. He continues to deny chest pain or shortness of breath. Patient does not take aspirin or blood thinners daily. Patient states he did not take his antihypertensive this morning. Differential diagnosis includes but is not limited to, central versus peripheral vertigo, to include stroke, ACS, viral syndrome, among others. Will evaluate the patient with CBC, BMP, COVID/flu, troponin, and EKG. Will treat with meclizine and IV fluids initially. Will determine need for CT scan after medical management. Patient outside tPA window. No hints exam indicated as patient does not have nystagmus. Patient's laboratory findings consisted of no leukocytosis, anemia, thrombocytopenia. Nonactionable CMP. Initial troponin <0.01. On reevaluation after meclizine and IV fluids, patient was sleeping comfortably. Upon awakening, patient felt that his diplopia had mildly improved, but continued to be present. Based on these continued symptoms, CT head and CT angiogram of the head were added to the patient's evaluation to rule out central causes of his symptoms. These images were personally reviewed by me and negative for intracranial hemorrhage, acute infarct, mass, large vessel occlusion or severe stenosis. I informed the patient and his of his imaging findings as well as laboratory findings. At this time, it is felt that patient may be at the beginning of a viral infection causing his symptoms. Patient was advised to drink adequate fluids in rest for the next day or two given the strenuous nature of his work. Patient advised to follow-up with his PCP in the next 2 to 3 days. Patient and in agreement with this plan. Patient discharged in stable condition. Monique Laws MD Critical Care Critical Care Time Critical Care Time: No
--- NOTE | 2024-11-29 11:35 | PC.NURSE ---
ROUNDED ON PT, RESTING WITH EYES CLOSED. CALL LIGHT WITHIN REACH. PT PROVIDED WARM BLANKET. PT AND UPDATED ON POC. NO FURTHER QUESTIONS AT THIS TIME. PROVIDED COFFEE
[2024-11-29 11:37] LABS: Blood Urea Nitrogen 15 mg/dl (9-20); Carbon Dioxide 28 mmol/L (22.0-30.0); Chloride 105 mmol/L (98-107); Creatinine Clearance Estimated 92 mL/min (50-200); Estimated Glomerular Filt Rate 84 ml/min (>60); GFR (African American) 102 ML/MIN (>60); Glucose 139 mg/dl (74-100); Sodium 141 mmol/L (136-145)
[2024-11-29 11:46] LABS: Troponin I < 0.01 ng/ml (0.00-0.034)
[2024-11-29 12:32] LABS: Hepatitis C Ab Qual. W/ RFX NEGATIVE (Negative)
--- NOTE | 2024-11-29 12:49 | PC.NURSE ---
Rounded on the pt, he states that his blurred vision and dizziness is better. no needs voiced. call dwyer in reach.
--- NOTE | 2024-11-29 12:55 | PC.NURSE ---
DR PRIETO AT BEDSIDE TO UPDATE PT AND FAMILY
--- NOTE | 2024-11-29 13:06 | CT_ITS ---
FINAL REPORT TECHNIQUE: Axial CT images were performed through the head. Coronal reformatted images were submitted. This study was performed with techniques to keep radiation doses as low as reasonably achievable (ALARA). Individualized dose reduction techniques using automated exposure control or adjustment of mA and/or kV according to the patient's size were employed. CLINICAL HISTORY: Double vision, dizziness COMPARISON: None FINDINGS: The ventricles are normal in size. There is very minimal decreased attenuation in small areas of the periventricular white matter, in this age group most likely very minimal ischemic microvascular change. There is no evidence of hemorrhage. There is no mass or edema identified. There is no abnormal extra-axial fluid seen. The sinuses are well aerated. IMPRESSION: No acute intracranial process. Reviewed, Interpreted and Dictated by Lorenzo Staton MD Transcribed by Annalee Kim Authenticated and [facility] [place]
--- NOTE | 2024-11-29 13:06 | CT_ITS ---
FINAL REPORT TECHNIQUE: thin section axial CT with and without IV contrast supplemented with multiplanar 3-D reconstruction of the head. This study was performed with techniques to keep radiation doses as low as reasonably achievable, (ALARA)individualized dose reduction techniques using automated exposure control or adjustment of mA and/or kV according to the patient's size were employed. CLINICAL HISTORY: Double vision, dizziness COMPARISON: None FINDINGS: HEAD CT: The ventricles are normal in size. There is no evidence of hemorrhage. No masses are identified. No extra-axial fluid is seen. The sinuses are normal. CTA: The cranial circulation is unremarkable. There is no significant stenosis, aneurysm or occlusion. IMPRESSION: No acute process. Reviewed, Interpreted and Dictated by Lorenzo Staton MD Transcribed by Annalee Kim Authenticated and [facility]
[2024-11-29 13:14] LABS: HIV Combo NEGATIVE (Negative)
--- NOTE | 2024-11-29 13:19 | PC.NURSE ---
PT TO CT
--- NOTE | 2024-11-29 13:28 | PC.NURSE ---
back from CT
[2024-11-29] MEDS: 0.9 % SODIUM CHLORIDE 50 ML VIAL IV (13:33)
[2024-11-29] MEDS: SODIUM CHLORIDE 0.9% 10ML SYR (RAD ONLY) 10 ML IV (13:33)
[2024-11-29] MEDS: IOPAMIDOL-370 (76%);100ML BOTTLE 80 ML IV (13:33)
--- NOTE | 2024-11-29 13:38 | PC.NURSE ---
PT WAS GIVEN A WARM BLANKET WHEN ROUNDING ON HIM NO OTHER NEEDS AT AT THIS TIME,CALL LIGHT IN REACH
== END 2024-11-29 15:30 | disposition home or self-care (01) ==
PROVIDERS: Emergency Provider Student in an Organized Health Care Education/Training Program; PCP Internal Medicine
DX: H53.2 Diplopia (principal); R42 Dizziness and giddiness; R11.10 Vomiting, unspecified; R03.1 Nonspecific low blood-pressure reading; R53.1 Weakness
CPT/HCPCS: 70450; 70496; 80048; 84484; 85025; 86803; 87389; 93005; 96360; 99285; J7120; Q9967

== ENCOUNTER 2025-04-15 14:34 | Outpatient (CLI) | payer MEDICARE, BC, SELFPAY ==
--- OUTSIDE RECORDS SUMMARY | 2025-04-15 14:38 | XMS_ITS | Clinical Summary ---
Author Organization [facility] Address [address] [place] [address] Phone [email or web address] Care Team Providers Care Concrete Swimming Pool Installer Name Role Phone Patel Mcarthur Primary Care Provider [phone] Allergies No known active allergies Medications No known medications Active Problems Problem Noted Date Diagnosed Date Need for prophylactic vaccin ation with combined gapqnwsbjw-proxenk-vuewbazcv (DTP) vaccine 06/05/2014 Overview (03/28/2018): Foreign body in cornea 06/05/2014 Overview (03/28/2018): Laboratory exam ordered as p art of routine general medical examination 02/09/2011 Overview (03/28/2018): Examination for medicolegal reason 05/18/2010 Overview (03/28/2018): Other ill-defined disorder of eye 07/24/2009 Overview (03/28/2018): Fitting and adjustment of other device 9 Overview (03/28/2018): Routine general medical exam ination at a health care facility 02/10/2009 Overview (03/28/2018): Other examination of ears and hearing 01/24/2008 Overview (03/28/2018): Immunizations Immunization Administration Dates Next Due Tdap (ADACEL BOOSTRIX) ([id number]) 06/05/2014,04/2014 Social History Tobacco Use Types Packs/Day Years Used Date Smoking Tobacco: Never Smokeless Tobacco: Never Intimate Partner Violence Answer Date R ecorded Insults You Not on file 02/10/2021 Threatens You Not on file 02/10/2021 Screams at You Not on file 02/10/2021 Physically Hurt Not on file 02/10/2021 Intimate Partner Violence Score Not on file 02/10/2021 Depression Answer Date Recorded PHQ Total Score Not on file 04/03/2021 Stress Answer Date Recorded Stress in your Life 0 12/11/2020 Dealing with Stress Not on file 12/11/2020 Sex and Gender Information Value Date Recorded Sex Assigned at Not on file Legal Sex Male 9:55 AM CDT Gender Identity Not on file Sexual Orientation Not on file Last Filed Vital Signs Vital Sign Reading Time Taken Comments Blood Pressure 154/90 03/24/2020 9:43 AM EDT Pulse 67 03/24/2020 9:43 AM EDT Temperature 36.6 C (97.9 F) 03/24/2020 9:43 AM EDT Respiratory Rate - - Oxygen Saturation 98% 03/24/2020 9:43 AM EDT Inhaled Oxygen Concentration - - Weight 79.4 kg (175 lb) 11/22/2019 1:08 PM EST Height 177.8 cm (5' 10 ) 11/22/2019 1:08 PM EST Body Mass Index 25.11 11/22/2019 1:08 PM EST Plan of Treatment Health Maintenance Due Date Last Done Comments Dental Cleaning/Exam 1960 Colorectal Cancer Screening 02/01/1988 Pneumococcal: 65+ Years (1 o f 1 - PCV) 02/01/2008 Zoster Immunization (1 of 2) 02/01/2008 Tetanus Diphtheria and Pertussis Immunization (3 - Td or Tdap) 06/05/2024 06/05/2014, 06/05/2014 Covid-19 Immunization ( - season) 2024 Influenza Immunization (Season Ended) 2025 HIB Immunization Aged Out No longer e ligible based on patient's age to complete this topic HPV Immunization Aged Out No longer e ligible based on patient's age to complete this topic Hepatitis A Immunization Aged Out No longer eligible based on patient's age to complete this topic Hepatitis B Immunization Aged Out No longer eligible based on patient's age to complete this topic Polio Immunization Aged Out No longer eligible based on patient's age to complete this topic Insurance GENERIC COMMERCIAL Care Teams Concrete Swimming Pool Installer Relationship Specialty Start Date End Date Patel Mcarthur [facility] [address] [id number] PCP - General Family Medicine 03/24/20
[2025-04-15 15:10] LABS: Basophils % 0.4 % (0.1-2.0); Eosinophils # 0.3 Kmm3 (0.0-0.4); Eosinophils % 3.8 % (0.1-12.0); Hematocrit 47.9 % (42.0-52.0); Hemoglobin 15.6 g/dL (14.1-18.0); Immature Granulocytes # 0.02 10^3uL; Immature Granulocytes % 0.3 %; Lymphocytes # 2.2 K/mm3 (0.7-4.5); Lymphocytes % 29.6 % (10-50); Mean Corpuscular HGB Conc 32.6 g/dL (31.8-35.4); Mean Corpuscular Hemoglobin 30.8 pg (27.0-31.2); Mean Corpuscular Volume 94.7 fl (80-94); Mean Platelet Volume 9.2 fl (7.4-10.4); Monocytes # 0.6 K/mm3 (0.1-1.0); Neutrophils # 4.3 K/mm3 (1.8-7.8); Neutrophils % 57.9 % (37.0-80.0); Nucleated Red Blood Cells # 0 10^3/uL; Nucleated Red Blood Cells % 0 %; Platelet Count 183 K/mm3 (142-424); Red Blood Count 5.06 M/mm3 (4.60-6.20); Red Cell Distribution Width 12.7 % (11.5-17.5); Red Cell Distribution Width-SD 43.8 fL; White Blood Count 7.3 K/mm3 (4.8-10.8)
[2025-04-15 15:21] LABS: Albumin Level 4.1 g/dl (3.5-5.0); Chloride 107 mmol/L (98-107)
[2025-04-15 15:22] LABS: Sodium 141 mmol/L (136-145)
[2025-04-15 15:24] LABS: Bilirubin,Unconjugated 0.3 mg/dL (0.0-1.1); Blood Urea Nitrogen 19 mg/dl (9-20); Carbon Dioxide 29 mmol/L (22.0-30.0); Estimated Glomerular Filt Rate 84 ml/min (>60); GFR (African American) 102 ML/MIN (>60)
[2025-04-15 15:25] LABS: Alanine Aminotransferase 53 U/L (12-78); Alkaline Phosphatase 63 U/L (38-126); Aspartate Amino Transferase 36 U/L (17-59); Bilirubin,Direct 0.1 mg/dl (0.0-0.4); Bilirubin,Indirect 0.3 mg/dL (0.0-0.9); Bilirubin,Total 0.4 mg/dl (0.2-1.3); Calcium 9.3 mg/dl (8.4-10.2); Cholesterol 216 mg/dl (140-200); Glucose 109 mg/dl (74-100); HDL Cholesterol 27 mg/dl (40-60); Magnesium 1.9 mg/dl (1.6-2.3); Total Protein,Serum 6.5 g/dl (6.3-8.2); Triglycerides 329 mg/dl (30-150); VLDL Cholesterol 66 mg/dL (0-40)
[2025-04-15 15:36] LABS: Direct LDL Cholesterol 133.66 mg/dL (100-129)
[2025-04-15 15:42] LABS: Free T4 (Free Thyroxine) 1.06 ng/dl (0.78-2.19)
[2025-04-15 15:56] LABS: Thyroid Stimulating Hormone 0.72 uIU/mL (0.465-4.68)
== END 2025-04-15 23:59 | disposition home or self-care (01) ==
LOC: LAB 14:35
PROVIDERS: PCP Internal Medicine; Visit Provider Internal Medicine
DX: K21.9 Gastro-esophageal reflux disease without esophagitis (principal); I10 Essential (primary) hypertension; R94.31 Abnormal electrocardiogram [ECG] [EKG]; R53.83 Other fatigue; R06.09 Other forms of dyspnea
CPT/HCPCS: 36415; 80048; 80061; 80076; 83735; 84439; 84443; 85025

== ENCOUNTER 2025-05-26 09:39 | Outpatient (CLI) | payer MEDICARE, BC, SELFPAY ==
--- OUTSIDE RECORDS SUMMARY | 2025-05-26 09:51 | XMS_ITS | Clinical Summary ---
Author Organization [facility] Address [address] [place] [address] Phone [email or web address] Care Team Providers Care Intellectual Property Paralegal Name Role Phone Patel Mcarthur Primary Care Provider [phone] Allergies No known active allergies Medications No known medications Active Problems Problem Noted Date Diagnosed Date Need for prophylactic vaccin ation with combined drzpvodypy-nyqoewm-nuobphtxy (DTP) vaccine 06/05/2014 Overview (03/28/2018): Foreign body [...] or Tdap) 06/05/2024 06/05/2014, 06/05/2014 Covid-19 Immunization (1 - season) 2024 Influenza Immunization (#1) 2025 HIB Immunization Aged Out No longer [...] this topic Insurance GENERIC COMMERCIAL Care Teams Intellectual Property Paralegal Relationship Specialty Start Date End Date Patel Mcarthur [facility] [address] [address] PCP - General Family Medicine 03/24/20
[2025-05-26 10:35] VITALS: PULSE 62; PULSE 66
[2025-05-26] MEDS: ALBUTEROL 0.083% 2.5 MG/3 ML NEB IH (10:35)
== END 2025-05-26 23:59 | disposition home or self-care (01) ==
LOC: RT 09:40
PROVIDERS: PCP Internal Medicine; Visit Provider Internal Medicine Pulmonary Disease
DX: R06.02 Shortness of breath (principal); R06.09 Other forms of dyspnea
CPT/HCPCS: 94060; 94618; 94640; 94726; 94729

== ENCOUNTER 2025-07-28 10:30 | Outpatient (CLI) | payer MEDICARE, BC, SELFPAY ==
--- OUTSIDE RECORDS SUMMARY | 2025-07-28 10:34 | XMS_ITS | Clinical Summary ---
Author Organization [facility] Address [address] [place] [address] Phone [email or web address] Care Team Providers Care Capping Machine Operator Name Role Phone Patel Mcarthur Primary Care Provider [phone] Allergies No known active allergies Medications No known medications Active Problems Problem Noted Date Diagnosed Date Need for prophylactic vaccin ation with combined izborulpxo-wsnxucn-qfsxgblva (DTP) vaccine 06/05/2014 Overview (03/28/2018): Foreign body [...] Health Maintenance Due Date Last Done Comments CT Colonography 1960 Colonoscopy 1960 Colorectal Cancer Screening Combo 1960 DNA Cologuard 1960 Dental Cleaning/Exam 1960 FIT or FOBT Test 1960 Sigmoidoscopy 1960 Pneumococcal: 50+ Years (1 o f 1 - PCV) 02/01/2008 Zoster Immunization (1 of 2) 02/01/2008 Tetanus Diphtheria and Pertussis Immunization (3 - Td or Tdap) 06/05/2024 06/05/2014, 06/05/2014 Covid-19 Immunization (1 - season) 2025 Influenza Immunization (#1) 2025 HIB Immunization Aged [...] this topic Insurance GENERIC COMMERCIAL Care Teams Capping Machine Operator Relationship Specialty Start Date End Date Patel Mcarthur [place] [address] [address] PCP - General Family Medicine 03/24/20
--- NOTE | 2025-07-28 10:35 | XR_ITS ---
FINAL REPORT TECHNIQUE: Left foot 3 views CLINICAL HISTORY: left foot pain COMPARISON: None FINDINGS: LEFT FOOT Three views of the left foot demonstrate no acute fracture or dislocation. The visualized joint spaces are normally aligned. The soft tissues are unremarkable. IMPRESSION: No acute bony abnormality. Reviewed, Interpreted and Dictated by Lorenzo Staton MD Transcribed by Annalee Kim Authenticated and [facility]
== END 2025-07-28 23:59 | disposition home or self-care (01) ==
LOC: RAD 10:31
PROVIDERS: PCP Internal Medicine; Visit Provider Nurse Practitioner Family
DX: M79.672 Pain in left foot (principal)
CPT/HCPCS: 73630

== ENCOUNTER 2025-09-08 17:54 | Emergency (ER) | payer SELFPAY ==
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
--- NOTE | 2025-09-08 18:03 | ECG_ITS ---
APPROVED REPORT Exam: Resting ECG HR:96 bpm ECG Measurements Heart Rate 96 AXES RI 162 P 64 QRSd 102 QRS 84 QT 344 T 55 QTc 398 Conclusion SINUS RHYTHM NORMAL ECG UNCONFIRMED REPORT Electronically signed by : BRAD MORENO, 09/09/2025 05:22:13
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
[2025-09-08 18:09] LABS: Hematocrit 50.1 % (42.0-52.0); Hemoglobin 17.0 g/dL (14.1-18.0); Immature Granulocytes % 0.8 %; Mean Corpuscular HGB Conc 33.9 g/dL (31.8-35.4); Mean Corpuscular Hemoglobin 32.0 pg (27.0-31.2); Mean Corpuscular Volume 94.2 fl (80-94); Nucleated Red Blood Cells % 0 %; Platelet Count 209 K/mm3 (142-424); Red Blood Count 5.32 M/mm3 (4.60-6.20); Red Cell Distribution Width-SD 43.1 fL; White Blood Count 9.0 K/mm3 (4.8-10.8)
[2025-09-08 18:11] VITALS: BP 178/98; PULSE 93; RESP 20; TEMP 36.9; O2SAT 100
--- OUTSIDE RECORDS SUMMARY | 2025-09-08 18:24 | XMS_ITS | Data Portability ---
Author Organization [place] - [place] - [facility] [place] Address [address] [place] [address] Assessment No assessment recorded. Plan of Treatment Reminders Order Date Submit Date Provider Last Modified By Organization Details Last Modified Time Details Appointments None recorded. Lab None recorded. Referral None recorded. Procedures None recorded. Surgeries None recorded. Imaging None recorded. Medication Orders Percocet 10 mg-325 mg tablet [address] [facility], [address], [place], [address], 3 19:37:53 Patient TargetsNo targets recorded. Patient InstructionsNo instructions recorded. Reason for Referral None Reported. Results Created Date Observation Date Name Description Value Unit Range Abnormal Flag Note LastModifiedBy Organization Detail LastModifiedTime 12/06/19 23 12/05/2022 CT, abdom en + pelvi s, w/o contr ast No observ ation record ed. [email or web address] [place] [address] (Med Record) [address], [place], [address], 12/08/2022 11:04:11 12/08/19 23 12/08/2022 XR, abdom en, 1 view [facility] [address] [place] [address] [phone] (Phone ) DIAGNO STIC IMAGIN G REPORT ------ ------ ------ ------ ------ ------ ------ ------ ----- Patien t Name: RAYMOND ARROYO No: [id number] Medica l Record No: [id number] Date of : 1959 Access ion No: [id number] Date of Exam: 2022 Oscar t Type: Outpat ient Orderi doris Physic dixon: SETH GONCALVES ------ ------ ------ ------ ------ ------ ------ ------ ----- FINAL REPORT PROCED URE: ABD KUB 1V CLINIC AL HISTOR Y: pre op 7 FINDIN GS: There is a nonspe cific bowel gas patter n. There are no abnorm ally dilate d loops of small bowel. The renal shadow s are not well seen. There is a 3 mm calcif icatio n likely in the right renal pelvis or proxim al ureter . A 5 mm rounde d calcif icatio n in the right side of the pelvis likely repres ents a phlebo lith. There are severa l surgic al clips projec ting over the cecum. IMPRES DILLON: 3 mm right renal stone as descri bed. 5 mm probab le phlebo lith in the right pelvis . Review ed, Interp reted and Dictat ed by Marcella Nicole MD Transc ribed by Tae Coughlin ticate d and Electr onical ly Signed by Marcella Nicole MD on 2022 07:52: 54 AM LOUIS Haney CC'ed Logic: Jay george Provid er: HECTOR Sorenson CC Provid er: KENNEDY ADAME Attend ing Provid er: HECTOR Sorenson Referr ing Provid er: HECTOR Sorenson Admitt ing Provid er: HECTOR Sorenson [email or web address] [facility] (Central Scheduling) [address] [place] [address] [place], [address], 12/08/2022 08:58:59 Result Notes Documentation Provider Name and Address Organization Details Recorded Time Xr, Abdomen, 1 View : [address] [address] (Phone) DIAGNOSTIC IMAGING REPORT --- Patient Name: MICAH ARROYO Patient No: [id number] Date of : 1960 Accession No: [id number] Date of Exam: 12/08/2022 Patient Type: Outpatient Ordering Physician: JULIOCESAR SILVA --- FINAL REPORT PROCEDURE: ABD KUB 1V CLINICAL HISTORY: pre op 7 FINDINGS: There is a nonspecific bowel gas pattern. There are no abnormally dilated loops of small bowel. The renal shadows are not well seen. There is a 3 mm calcification likely in the right renal pelvis or proximal ureter. A 5 mm rounded calcification in the right side of the pelvis likely represents a phlebolith. There are several surgical clips projecting over the cecum. IMPRESSION: 3 mm right renal stone as described. 5 mm probable phlebolith in the right pelvis. Reviewed, Interpreted and Dictated by Marcella Nicole MD Transcribed by Tae Alcaraz Authenticated and [facility][1]'ed Logic: Ordering Provider: OZZY PEREZ CC Provider: KENNEDY ADAME Attending Provider: OZZY PEREZ Referring Provider: OZZY PEREZ Admitting Provider: OZZY Silva M.D [address] [place] [address], [address], [place], [address], [facility] & [place] 12/08/2022 08:58:59 Problems Name Problem SNOMED Code Status Onset Date Resolution Date Notes Provider Name and Address Organization Details Recorded Time Kidney stone 25088867 Active 023 Charley arteaga, [place] - [facility] - [place] & [place] 12/08/2022 13:48:47 Problem Notes None recorded. Procedures Surgical History Date Name Laterality Status Provider Name and Address Organization Details Recorded Time 10/30/18 96 Appendectomy completed Gina Best [facility] & [place] 12/06/2022 15:13:02 ureterorenoscopy with fragmentation and removal of calculus of kidney completed Charley Richardson [facility] & [place] 12/08/2022 13:49:04 Imaging Results None recorded. Procedure Notes None recorded. Medical Equipment None Reported. Allergies No known drug allergies Medications Name Sig Start Date Stop Date Status Note LastModified by Organization Details LastModified Time ondansetron HCl 4 mg tablet TAKE 1 TABLET BY MOUTH EVERY 8 HOURS NEEDED FOR NAUSEA active Not Available Not Available No t Available sulfamethoxazole 800 mg-trimethoprim 160 mg tablet TAKE 1 TABLET BY MOUTH TWICE DAILY active Not Available Not Available No t Available oxycodone-acetam inophen 10 mg-325 mg tablet Take 1 tablet every 6 hours by oral route as needed for 10 days. active Not Available Not Available No t Available Multi Vitamin active Not Available Not Available Not Available Vitals Date Recorded Body height Body mass index (BMI) Body weight Body temperature Provider Name and Address Organization Details Last Updated DateTime 12/06/2022 177.8 cm 25.8 kg/m2 96932.63 g 98 [degF] Gina Best [facility] & [place] 12/06/2022 15:12:49 Social History Question Answer Notes LastModified by Organizat ion Details LastModified Time Tobacco Smoking Status Never Smoker Gina Best [facility] & [place] 12/06/2022 15:13:02 Do You Have An Advance Directive? No [email or web address] Information not available 12/06/2022 Are You Blind Or Do You Have Difficulty Seeing? No Information not available 12/06/2022 What Was The Date Of Your Most Recent Tobacco Screening? 12/06/2022 Information not available 12/06/2022 Are You Passively Exposed To Smoke? No [email or web address] Information not available 12/06/2022 How Much Tobacco Do You Smoke? No Information not available 12/06/2022 How Many Years Have You Smoked Tobacco? None [email or web address] Information not available 12/06/2022 Sex: Unknown Functional Status Question Answer Note LastModified by Organizat ion Details LastModified Time Do you use any illicit or recreational drugs? No [email or web address] Information not available 12/06/2022 What is your level of alcohol consumption? None [email or web address] Information not available 12/06/2022 Do you or have you ever used smokeless tobacco? Never used smokeless tobacco [email or web address] Information not available 12/06/2022 What is your exercise level? None Information not available 12/06/2022 Mental Status Question Answer Note LastModified by Organization D etails LastModified Time Do you feel stressed (tense, restless, nervous, or anxious, or unable to sleep at night)? [id number] [email or web address] Information not available 12/06/2022 Family History Nothing Reported Notes:mother alive father al pamela brother alive sister alive Medical History Condition Response None Y Kidney Stones Y Past Encounters Encounter ID Performer Location Encounter Start Date Encounter Closed Date Diagnosis/Indication Diagnosis SNOMED-CT Code Diagnosis ICD10 Code Diagnosis IMO Codes Diagnosis Note [id number] Juliocesar Silva M.D [facility] [address] [place] [phone] [id number] 12/06/2022 14:49:14 12/06/2022 15:54:28 Ureteric stone 64195561 N20.[address] scan. At this time he is agreeable to being put on scheduled for 12/08/2022 .If he is able to pass his stone we will cancel his procedure. I have also advised that there is a chance I may not be able to get the scope to the proximal stone. He will be left with a stent with or without a string depending on the success of removal of the stone Health Concerns Section Related Observation LastModified by Organization Detai ls LastModified Time None Recorded Concern Status LastModified by Organization Details LastModified Time None Recorded Advance Directives Directive N: Payers Insurance Date Sequence Insurance Name Policy Number Policy Hair Covered Member ID Hair Member ID Guarantor Name 12/15/2022 1 [employer] [id number] R Micah Arroyo [id number] Micah Arroyo Notes Date Note Type Note Provider Name and Address Organization Details Recorded Time 12/06/2022 text/html pt is here for follow up right prox stone. He developed severe right flank pain 12/05/2022. He will was seen in the ER At [facility].CT showed right hydronephrosis with 4 mm proximal ureteral stone. He was treated with Zofran and codeine.He is now doing better. He still has some flank pain and right lower quadrant painno current gross bloody urine. Juliocesar Silva M.D [address] [place] [address], [address], [place], [address], [facility] - NT - [place] & [place] 12/06/2022 19:42:05
[2025-09-08 18:37] LABS: Alanine Aminotransferase 34 U/L (12-78); Albumin Level 4.6 g/dl (3.5-5.0); Albumin/Globulin Ratio 1.4 (1.1-1.8); Alkaline Phosphatase 70 U/L (38-126); Anion Gap 11.6 mEq/L (5-15); Aspartate Amino Transferase 41 U/L (17-59); Bilirubin,Total 0.6 mg/dl (0.2-1.3); Blood Urea Nitrogen 15 mg/dl (9-20); Calcium 9.1 mg/dl (8.4-10.2); Carbon Dioxide 26 mmol/L (22.0-30.0); Chloride 102 mmol/L (98-107); Creatinine,Serum 1.00 mg/dl (0.66-1.25); Estimated Glomerular Filt Rate 75 ml/min (>60); GFR (African American) 90 ML/MIN (>60); Globulin 3.3 g/dL (1.3-3.2); Glucose 143 mg/dl (74-100); Potassium 3.6 mmoL/L (3.5-5.1); Sodium 136 mmol/L (136-145); Total Protein,Serum 7.9 g/dl (6.3-8.2)
[2025-09-08] MEDS: IOPAMIDOL-370 (76%);100ML BOTTLE 160 ML IV (18:41)
[2025-09-08] MEDS: SODIUM CHLORIDE 0.9% 10ML SYR (RAD ONLY) 10 ML IV (18:41)
[2025-09-08] MEDS: 0.9 % SODIUM CHLORIDE 50 ML VIAL 100 ML IV (18:41)
[2025-09-08 18:46] VITALS: BP 174/100; PULSE 81; RESP 20; TEMP 36.7; O2SAT 100; BMI 27.2
[2025-09-08 18:46] LABS: Activated Partial Thrombo Time 23.8 seconds (22.8-30.6); INR 1.01 (0.9-1.1); Prothrombin Time 11.2 seconds (10.1-12.5)
[2025-09-08] MEDS: ONDANSETRON 4MG/2ML VIAL 4 MG IV (19:23)
[2025-09-08] MEDS: FENTANYL 100MCG/2ML VIAL 50 MCG IV (19:28)
[2025-09-08 19:46] VITALS: PULSE 111; O2SAT 94
[2025-09-08 20:00] VITALS: BP 157/90; PULSE 115; O2SAT 96
[2025-09-08 20:10] VITALS: BP 157/90; PULSE 112; RESP 17; TEMP 37.4; O2SAT 94
[2025-09-08 20:30] VITALS: BP 157/90; PULSE 114; RESP 18; TEMP 37.4; O2SAT 95
--- NOTE | 2025-09-08 20:44 | PC.NURSE ---
Pt cleansed with soap and water, lac to nose dressed with non adherent dressing and band aid, left hand cleansed wrapped with Curlex.
== END 2025-09-08 20:45 | disposition home or self-care (01) ==
PROVIDERS: Physician Assistant; Emergency Provider Student in an Organized Health Care Education/Training Program; PCP Internal Medicine
DX: S02.2XXB Fracture of nasal bones, initial encounter for open fracture (principal); R07.89 Other chest pain; J90 Pleural effusion, not elsewhere classified; V49.40XA Driver injured in collision with unspecified motor vehicles in traffic accident, initial encounter
CPT/HCPCS: 12011; 70450; 70486; 70496; 70498; 71045; 71275; 72125; 72170; 73110; 73130; 74174; 80053; 85025; 85610; 85730; 90471; 93005; 96374; 96375; 99285; 99291; G0390; J2405; J3010; Q9967